=== PATIENT | male | born 1975 | race Caucasian/White ===

== ENCOUNTER 2017-06-05 11:32 | Emergency (ER) | payer SELFPAY ==
[~2017-06-05] VITALS: Ht 188 cm; Wt 105.2 kg
[~2017-06-05 11:32] MED LIST: ZITHROMAX PO
== END 2017-06-05 13:10 | disposition home or self-care (01) ==
LOC: CFTX 11:32 → CED 11:32 → CFTX 13:08
DX: S61.211A Laceration without foreign body of left index finger without damage to nail, initial encounter (principal); S61.215A Laceration without foreign body of left ring finger without damage to nail, initial encounter; Z87.891 Personal history of nicotine dependence; X58.XXXA Exposure to other specified factors, initial encounter; Y92.009 Unspecified place in unspecified non-institutional (private) residence as the place of occurrence of the external cause
CPT/HCPCS: 12001; 90471; 90715; 99283